=== PATIENT | female | born 1965 | race Caucasian/White ===

== ENCOUNTER 2018-10-08 17:37 | Emergency (ER) | payer OTHER ==
--- NOTE | 2018-10-08 19:04 | ED ---
Upper Extremity Pain - HPI Summary HPI Summary: Patient is a 52 y/o F presenting to ED with complaints of left AC pain, redness , and swelling alongside a fever. She is concerned for abscess in her arm. She reports pain at her arm that onset a few days ago. She states that pain worsened yesterday. On triage, pain is rated 6/10, achy, located deep in her arm and worse w movement. Patient notes that she has FROM at the arm. PMHx of blood clots, patient notes that she used to be on blood thinners. Patient had blood drawn from her left arm around two weeks ago and states that the trainee who did it had done a poor job with the draw. Patient had an US done on left arm earlier today by Dr. Briones with the following impression: LEFT UPPER EXTREMITY VENOUS DOPPLER IMPRESSION: NO LEFT UPPER EXTREMITY DEEP VEIN THROMBOSIS. COMPLEX FLUID COLLECTION IN THE AREA OF PAIN OF THE ANTECUBITAL FOSSA MEASURING UP TO 3.1 CM. THE DIFFERENTIAL INCLUDES ABSCESS IN THE CORRECT CLINICAL SETTING. - History of Current Complaint Chief Complaint: EDRashSkinAbscess Stated Complaint: ABCESS IN LT ARM PER PT Time Seen by Provider: 10/08/18 18:14 Hx Obtained From: Patient, Medical Records Hx Last Menstrual Period: 2 wks ago Onset/Duration: Started Days Ago, Still Present, Worse Since - yesterday Timing: Constant, Lasting Days Severity Initially: Mild Severity Currently: Moderate Pain Location: Arm - left AC Associated Signs & Symptoms: Positive: Swelling - left arm, Redness - left arm, Fever - Allergies/Home Medications Allergies/Adverse Reactions: Allergies Allergy/AdvReac Type Severity Reaction Status Date / Time meperidine [From Demerol] Allergy Severe Vomiting Verified 10/08/18 17:56 scopolamine Allergy Severe See Comment Verified 10/08/18 17:56 PMH/Surg Hx/FS Hx/Imm Hx Endocrine/Hematology History: Denies: Hx Diabetes, Hx Thyroid Disease Cardiovascular History: Denies: Hx Hypertension, Hx Pacemaker/ICD Respiratory History: Denies: Hx Asthma, Hx Chronic Obstructive Pulmonary Disease (COPD) GI History: Denies: Hx Ulcer Sensory History: Denies: Hx Hearing Aid Psychiatric History: Denies: Hx Panic Disorder - Cancer History Hx Chemotherapy: No Hx Radiation Therapy: No - Surgical History Surgery Procedure, Year, and Place: Rt ovary & TUBAL LIGATION. gallbladder. ARM - FX Infectious Disease History: No Infectious Disease History: Denies: Hx Hepatitis, Hx Human Immunodeficiency Virus (HIV), Traveled Outside the [place] in Last 30 Days - Family History Known Family History: Positive: Cardiac Disease - Social History Alcohol Use: Weekly Substance Use Type: Reports: None Smoking Status (MU): Never Smoked Tobacco Review of Systems Positive: Fever Positive: Myalgia - left arm pain , Edema - left arm . Negative: Decreased ROM Skin: Other - positive - left arm redness All Other Systems Reviewed And Are Negative: Yes Physical Exam - Summary Physical Exam Summary: Constitutional: Well-developed, Well-nourished, Alert. (-) Distressed Skin: Warm, Dry HENT: Normocephalic; Atraumatic Eyes: Conjunctiva normal Neck: Musculoskeletal ROM normal neck. (-) JVD, (-) Stridor, (-) Nuchal rigidity Cardio: Rhythm regular, rate normal, Heart sounds normal; Intact distal pulses; Radial pulses are 2+ and symmetric. (-) Murmur Pulmonary/Chest wall: Effort normal. (-) Respiratory distress, (-) Wheezes, (-) Rales Abd: Soft, (-) tenderness, (-) Distension, (-) Guarding, (-) Rebound Musculoskeletal: Mild left AC tenderness, FROM of left elbow Lymph: (-) Cervical adenopathy Neuro: Alert, Oriented x3 Psych: Mood and affect Normal Triage Information Reviewed: Yes Vital Signs On Initial Exam: Initial Vitals Temp Pulse Resp BP Pulse Ox 98.6 F 69 14 128/75 98 10/08/18 17:51 10/08/18 17:51 10/08/18 17:51 10/08/18 17:51 10/08/18 17:51 Vital Signs Reviewed: Yes Diagnostics - Vital Signs Vital Signs Temp Pulse Resp BP Pulse Ox 10/08/18 17:51 98.6 F 69 14 128/75 98 - Laboratory Lab Statement: Any lab studies that have been ordered have been reviewed, and results considered in the medical decision making process. Course/Dx - Course Course Of Treatment: 52 year-old female with a history of POTS presents with L AC pain. Ultrasound showed possible 3 cm antecubital fossa abscess. Patient is asymptomatic, no signs of infection, full range of motion of the left elbow, no overlying cellulitis. No white count on labs no fever. Discuss case with on -call orthopedic - Diagnoses Provider Diagnoses: Arm pain, left, Abscess - Physician Notifications Discussed Care of Patient With: Beatrice Salcido Time Discussed With Above Provider: 19:14 Instructed by Provider To: Other - Patient's case was discussed with Dr. Salcido, Dr. Salcido states that the patient can be discharged and seen in her office tomorrow. Discharge - Sign-Out/Discharge Documenting (check all that apply): Patient Departure - discharge Patient Received Moderate/Deep Sedation with Procedure: No - Discharge Plan Condition: Stable Disposition: HOME Patient Education Materials: Abscess (ED), Arm Pain (ED) Referrals: Rupinder Briones MD [Primary Care Provider] - 3 Days Beatrice Salcido MD [Medical Doctor] - 1 Day Additional Instructions: You were seen in the emergency department for left arm pain. If any studies were not completed at the time of discharge you will be called with the relevant results. Please follow up with Dr. Salcido, orthopedics, tomorrow, and return to the emergency department for worsening pain, swelling, fevers, or any other worsening or concerning symptoms. It was a pleasure taking care of you today. - Billing Disposition and Condition Condition: STABLE Disposition: Home - Attestation Statements Document Initiated by Scribe: Yes Documenting Scribe: CONI AGRAWAL Provider For Whom Mirian is Documenting (Include Credential): NANCY RUGGIERO MD Scribe Attestation: I, CONI AGRAWAL, scribed for NANCY RUGGIERO MD on 10/08/18 at 2031. Scribe Documentation Reviewed: Yes Provider Attestation: The documentation as recorded by the CONI shah accurately reflects the service I personally performed and the decisions made by me, NANCY RUGGIERO MD Status of Scribe Document: Viewed
[2018-10-08 19:32] VITALS: BP 121/68
== END 2018-10-08 19:31 | disposition home or self-care (01) ==
LOC: ED 17:37
DX: L02.414 Cutaneous abscess of left upper limb (principal); Z88.5 Allergy status to narcotic agent; Z88.8 Allergy status to other drugs, medicaments and biological substances
CPT/HCPCS: 99281